=== PATIENT | male | born 1965 | race Hispanic/Latino ===

== ENCOUNTER 2024-07-08 12:20 | Emergency (ER) | payer OTHER ==
[~2024-07-08] VITALS: Ht 193 cm; Wt 128.4 kg
[2024-07-08 13:27] LABS: BASOPHILS 0.7 % (0-2); EOSINOPHILS 9.5 % (0-6); HEMATOCRIT 42.8 % (35.0-50.0); HEMOGLOBIN 14.8 g/dL (12.0-18.0); LYMPHOCYTES 31.7 % (24-44); MCH 32.6 (27-36); MCHC 34.6 g/dl (30-36); MCV 94.2 fl (81-99); MONOCYTES 7.9 % (0-12); NEUTROPHILS 50.2 % (39-80); PLATELET COUNT 215 K/uL (140-440); RBC 4.55 M/ul (4.3-5.7); RDW 12.9 (10.5-15.0)
[2024-07-08 13:36] LABS: ANION GAP 13.8 (7-21); BUN/CREATININE RATIO 13.86 (6.0-28.6); CALCIUM 8.6 mg/dL (8.5-10.1); CREATININE, SERUM 1.01 mg/dL (0.70-1.30); POTASSIUM 3.8 mmol/L (3.5-5.1)
[2024-07-08 14:25] VITALS: BP 119/84
== END 2024-07-08 14:30 | disposition home or self-care (01) ==
LOC: ED 12:20
PROVIDERS: Emergency Medicine
DX: K42.9 Umbilical hernia without obstruction or gangrene (principal); Z86.73 Personal history of transient ischemic attack (TIA), and cerebral infarction without residual deficits; Z88.1 Allergy status to other antibiotic agents
CPT/HCPCS: 36415; 80048; 83605; 85025; 99284

== ENCOUNTER 2024-11-11 15:03 | Emergency (ER) | payer OTHER ==
[~2024-11-11] VITALS: Ht 193 cm; Wt 127.0 kg
[2024-11-11] MEDS ORDERED: KETOROLAC TROMETHAMINE 15 MG/ML VIAL IV ONE (16:00)
[2024-11-11] MEDS ORDERED: SODIUM CHLORIDE 0.9% 1,000 ML IV ONE (16:00)
[2024-11-11] MEDS ORDERED: ondansetron HCL 4 MG/2 ML VIAL IV ONE (16:00)
[2024-11-11 16:15] LABS: BASOPHILS 0.6 % (0.2-1.2); EOSINOPHILS 4.7 % (0.8-7.0); HEMOGLOBIN 14.4 g/dL (13.7-17.5); LYMPHOCYTES 22.9 % (21.8-53.1); MCH 31.9 PG (25.7-32.2); MCHC 34.3 g/dL (32.3-36.5); MCV 93.1 fL (79.0-92.2); MONOCYTES 12.9 % (5.3-12.2); NEUTROPHILS 58.8 % (34.0-67.9); PLATELET COUNT 196 K/uL (163-337); RBC 4.51 M/uL (4.63-6.08)
[2024-11-11 16:37] LABS: ALBUMIN 3.5 g/dL (3.4-5.0); ALBUMIN/GLOBULIN RATIO 0.88 (1.1-2.4); BILIRUBIN, TOTAL 0.3 mg/dL (0.2-1.0); BUN/CREATININE RATIO 12.5 (6.0-28.6); CALCIUM 8.2 mg/dL (8.5-10.1); CREATININE, SERUM 1.12 mg/dL (0.70-1.30); PROTEIN, TOTAL 7.5 g/dL (6.4-8.2)
[2024-11-11 17:20] LABS: BILIRUBIN, URINE NEGATIVE (negative); BLOOD/HGB, URINE NEGATIVE (Negative); KETONE, URINE NEGATIVE (Negative); LEUK ESTERASE, URINE NEGATIVE (negative); NITRITE, URINE NEGATIVE (negative)
[2024-11-11 17:32] VITALS: BP 137/94
== END 2024-11-11 17:32 | disposition other institution, planned readmission (95) ==
LOC: ED 15:03
PROVIDERS: Emergency Medicine
DX: K42.9 Umbilical hernia without obstruction or gangrene (principal); Z88.1 Allergy status to other antibiotic agents; Z86.73 Personal history of transient ischemic attack (TIA), and cerebral infarction without residual deficits
CPT/HCPCS: 36415; 74177; 80053; 81003; 83605; 83690; 85025; 96375; 99284-25; J1885; J2405; J7030; Q9967